=== PATIENT | male | born 1995 | race Caucasian/White ===

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

== ENCOUNTER 2017-04-15 13:14 | Emergency (ER) ==
[2017-04-15 13:19] VITALS: BP 127/89; TEMP 98.6; BMI 21.1
[2017-04-15 13:49] LABS: BASOPHILS # (AUTO) 0.1 K/uL (0-0.2); BASOPHILS % (AUTO) 0.5 % (0.0-3.0); EOSINOPHILS # (AUTO) 0.2 K/ul (0.0-0.7); EOSINOPHILS % (AUTO) 1.6 % (0.0-7.0); HEMATOCRIT 49.3 % (42.0-52.0); HEMOGLOBIN 17.1 g/dl (14.0-18.0); IMMATURE GRANULOCYTE % (AUTO) 0.4 % (0.0-5.0); LYMPHOCYTES # (AUTO) 3.4 K/uL (0.60-3.4); MEAN CORPUSCULAR HEMOGLOBIN 30.8 pg (27.0-31.0); MEAN CORPUSCULAR HGB CONC 34.7 (31.8-35.4); MEAN CORPUSCULAR VOLUME 88.7 fl (80.0-94.0); MONOCYTES # (AUTO) 0.6 K/uL (0.4-2.0); MONOCYTES % (AUTO) 5.8 (0-10); NEUTROPHILS # (AUTO) 6.4 K/ul (2.0-6.9); NEUTROPHILS % (AUTO) 59.7; PLATELET COUNT 235 10^3/uL (140-440); RED BLOOD COUNT 5.56 10^6/ul (4.70-6.10); WHITE BLOOD COUNT 10.65 K/ul (4.2-10.2)
[2017-04-15 14:54] LABS: BILIRUBIN,URINE Negative (NEGATIVE); KETONES,URINE Negative (NEGATIVE); LEUKOCYTE ESTERASE ,URINE Negative (NEGATIVE); NITRITE,URINE Negative (NEGATIVE); PROTEIN,URINE Negative (NEGATIVE); URINE, BLOOD Negative (NEGATIVE)
[2017-04-15 14:58] LABS: ADD URINE MICROSCOPIC NO
[2017-04-15 15:00] LABS: COCAIN SCREEN,URINE NEGATIVE (NEGATIVE)
[2017-04-15 15:15] LABS: ACETAMINOPHEN < 3 ug/ml (10-30); ALANINE AMINOTRANSFERASE 13 U/L (12-78); ALBUMIN 4.1 g/dL (3.4-5.0); ALBUMIN/GLOBULIN RATIO 1.24; ALKALINE PHOSPHATASE 102 U/L (50-136); ASPARTATE AMINO TRANSFERASE 15 U/L (5-30); BLOOD UREA NITROGEN 8 mg/dL (7-18); BUN/CREATININE RATIO 10.52; CALCIUM 9.6 mg/dL (8.2-10.2); CARBON DIOXIDE 24 mmol/L (21-32); CHLORIDE 106 mmol/L (98-107); CREATININE 0.76 mg/dL (0.60-1.10); GLUCOSE 106 mg/dL (70-100); SALICYLATE < 5.0 mg/dL (2.8-20.0); SODIUM 141 mmol/L (136-145); TOTAL PROTEIN 7.4 g/dL (6.4-8.2)
--- NOTE | 2017-04-15 15:33 | ED.PDOC ---
General ED Provider: Dr. ASHLEY JOSEPH Chief Complaint: Psychiatric Complaint Stated Complaint: suicidal ideation Time Seen by Physician: 13:19 (pt's father stated that pt expresses he is tired of it wants to end it all but pt denied it) Mode of Arrival: Walk-In Information Source: Patient Exam Limitations: No limitations Primary Care Provider: PATTY ARMSTRONG Nursing and Triage Documentation Reviewed and Agree: Yes (onarrival pt admitts to overdosing within past few weeks with ativan ) Psychological Complaint Exam - Psychiatric Complaint/Exam Patient Complains Of: Present: Suicidal thoughts, Suicidal gestures, Other ( overdosed with own meds a few weeks ago. ) Onset/Duration: few weeks Symptoms Are: Still present (per his father but pt denied fathers account of events) Timing: Intermittent Episodes Lasting: Hours Initial Severity: Severe Current Severity: Mild Character: Present: Anxious, Frustrated Aggravating: Reports: None Associated Signs And Symptoms: Reports: Paranoid behavior (per father none noted in ED). Denies: Hostile, Confused, Hallucinating Related History: Reports: Suicidal thoughts, Suicidal gestures, Prior attempts ( SUICIDE BY OVERDOSING), Recent stressors. Denies: Suicidal plan, Homicidal thoughts, Homicidal plan, Homicidal gestures Completed Suicide Risk Factors: Patient Accompanied By: Family, Police Patient In Custody Of Police: Yes Social Withdrawal Present: No Social Isolation Present: No Prior Suicide Attempt: Yes Injury From Prior Suicide Attempt: No Related Surgical History: Reports: None Patient Uncooperative For Exam: No Mood: Present: Agitated, Anxious Appearance: Present: Clean Thought Process: Present: Logical Insight: Present: Good Memory: Intact Judgement: Impaired Danger To Others: No Patient Medically Stable For: Psych evaluation Differential Diagnoses: Anxiety, Suicidal Ideation Review of Systems - Review Of Systems Constitutional: Reports: No symptoms Eyes: Reports: No symptoms Ears, Nose, Mouth, Throat: Reports: No symptoms Respiratory: Reports: No symptoms Cardiac: Reports: No symptoms GI: Reports: No symptoms : Reports: No symptoms Musculoskeletal: Reports: No symptoms Skin: Reports: No symptoms Neurological: Reports: Depressed Endocrine: Reports: No symptoms Hematologic/Lymphatic: Reports: No symptoms All Other Systems: Reviewed and Negative Past Medical History - Past Medical History Previously Healthy: Yes Endocrine: Reports: None Cardiovascular: Reports: None Respiratory: Reports: None Hematological: Reports: None Gastrointestinal: Reports: None Genitourinary: Reports: None Neuro/Psych: Reports: None, Other (not homocidal not suicidal father at bedside ) Musculoskeletal: Reports: None Cancer: Reports: None - Surgical History General Surgical History: Reports: None - Family History Family History: Reports: None - Social History Smoking Status: Current every day smoker, Light tobacco smoker Hx Substance Use: No Alcohol Screening: None Physical Exam - Physical Exam Appearance: Well-appearing, No pain distress, Well-nourished Eyes: SARA, EOMI, Conjunctiva clear ENT: Ears normal, Nose normal, Oropharynx normal Respiratory: Airway patent, Breath sounds clear, Breath sounds equal, Respirations nonlabored Cardiovascular: RRR, Pulses normal, No rub, No murmur GI/: Soft, Nontender, No masses, Bowel sounds normal, No Organomegaly Musculoskeletal: Normal strength, ROM intact, No edema, No calf tenderness Skin: Warm, Dry, Normal color Neurological: Sensation intact, Motor intact, Reflexes intact, Cranial nerves intact, Alert, Oriented Psychiatric: Affect appropriate, Mood appropriate Re-Evaluation - Re-Evaluation Time of Re-Evaluation: 15:00 Status: Improved Vital Signs Stable: Yes Pain Level: 0 Appearance: NAD Lungs: Clear Skin: Warm and Dry Neuro: Alert and Oriented X3 CV: RRR - Re-Evaluation Time of Re-Evaluation: 18:26 Status: Improved Vital Signs Stable: Yes Pain Level: 0 Appearance: NAD Skin: Warm and Dry Neuro: Alert and Oriented X3 CV: RRR (PT COMFORTABLE IN NO PAIN OR DISTRESS) Physician Notification - Case Discussed Physician Notified: [email or web address] Time of Notification: 19:00 Critical Care Note - Critical Care Note Total Time (mins): 0 Course - Course Hematology/Chemistry: 04/15/17 13:26 04/15/17 13:45 Orders, Labs, Meds: Lab Review 04/15/17 04/15/17 04/15/17 13:26 13:45 14:39 WBC 10.65 H RBC 5.56 Hgb 17.1 Hct 49.3 MCV 88.7 MCH 30.8 MCHC 34.7 RDW Coeff of Bob 12.6 Plt Count 235 Immature Gran % (Auto) 0.4 Neut % (Auto) 59.7 Lymph % (Auto) 32.0 [place] % (Auto) 5.8 Eos % (Auto) 1.6 Baso % (Auto) 0.5 Immature Gran # (Auto) 0.0 Neut # 6.4 Lymph # 3.4 [place] # 0.6 Eos # 0.2 Baso # 0.1 Sodium 141 Potassium 4.0 Chloride 106 Carbon Dioxide 24 Anion Gap 15.0 BUN 8 Creatinine 0.76 Estimated GFR (MDRD) 132.00 BUN/Creatinine Ratio 10.52 Glucose 106 H Calcium 9.6 Total Bilirubin 0.30 L AST 15 ALT 13 Alkaline Phosphatase 102 Total Protein 7.4 Albumin 4.1 Globulin 3.3 Albumin/Globulin Ratio 1.24 Urine Color Yellow Urine Clarity Clear Urine pH 7.0 Ur Specific [place] 1.020 Urine Protein Negative Urine Glucose (UA) Negative Urine Ketones Negative Urine Blood Negative Urine Nitrite Negative Urine Bilirubin Negative Urine Urobilinogen 0.2 Ur Leukocyte Esterase Negative Salicylate Level mg/dL < 5.0 Urine Opiates Screen Ur Oxycodone Screen Urine Methadone Screen Ur Propoxyphene Screen Acetaminophen < 3 L Ur Barbiturates Screen U Tricyclic Antidepress Ur Phencyclidine Scrn Ur Amphetamine Screen U Methamphetamines Scrn U Benzodiazepines Scrn Urine Cocaine Screen U Cannabinoids Screen Plasma/Serum Alcohol < 10.0 04/15/17 14:40 WBC RBC Hgb Hct MCV MCH MCHC RDW Coeff of Bob Plt Count Immature Gran % (Auto) Neut % (Auto) Lymph % (Auto) [place] % (Auto) Eos % (Auto) Baso % (Auto) Immature Gran # (Auto) Neut # Lymph # [place] # Eos # Baso # Sodium Potassium Chloride Carbon Dioxide Anion Gap BUN Creatinine Estimated GFR (MDRD) BUN/Creatinine Ratio Glucose Calcium Total Bilirubin AST ALT Alkaline Phosphatase Total Protein Albumin Globulin Albumin/Globulin Ratio Urine Color Urine Clarity Urine pH Ur Specific [place] Urine Protein Urine Glucose (UA) Urine Ketones Urine Blood Urine Nitrite Urine Bilirubin Urine Urobilinogen Ur Leukocyte Esterase Salicylate Level mg/dL Urine Opiates Screen Negative Ur Oxycodone Screen Negative Urine Methadone Screen Negative Ur Propoxyphene Screen Negative Acetaminophen Ur Barbiturates Screen Negative U Tricyclic Antidepress Negative Ur Phencyclidine Scrn Negative Ur Amphetamine Screen Negative U Methamphetamines Scrn Negative U Benzodiazepines Scrn Positive Urine Cocaine Screen Negative U Cannabinoids Screen Negative Plasma/Serum Alcohol Orders Category Date Time Status EKG-(ED ONLY) Stat CARDIO 04/15/17 13:26 Completed ACETAMINOPHEN Stat LAB 04/15/17 13:45 Completed BLOOD ALCOHOL Stat LAB 04/15/17 13:45 Completed CBC W/ AUTO DIFF Stat LAB 04/15/17 13:26 Completed COMPREHENSIVE METABOLIC PANEL Stat LAB 04/15/17 13:45 Completed DRUG SCREEN, URINE, RAPID Stat LAB 04/15/17 14:40 Completed SALICYLATE Stat LAB 04/15/17 13:45 Completed URINALYSIS C & S IF INDICATED Stat LAB 04/15/17 14:39 Completed Vital Signs: Temp Pulse Resp BP Pulse Ox 04/15/17 13:15 98.6 F 110 H 20 127/89 97 Departure - Departure Discharge Problem: Suicidal ideation Instructions: Suicide Prevention for Adults (ED) Condition: Good Pt referred to PMD for follow-up: Yes Additional Instructions: Please call your Family Physician as soon as possible to schedule a follow-up appointment.Please call your Family Physician as soon as possible to schedule a follow-up appointment.Please call your Family Physician as soon as possible to schedule a follow-up appointment. Allergies/Adverse Reactions: Allergies No Known Allergies Allergy (Verified 04/15/17 13:19) Home Medications: Ambulatory Orders Lorazepam [Ativan] 1 mg PO TID 04/15/17
== END 2017-04-15 21:00 | disposition home or self-care (01) ==
LOC: ED 13:14
DX: R45.851 Suicidal ideations (principal); F17.210 Nicotine dependence, cigarettes, uncomplicated
CPT/HCPCS: 36415; 80053; 80306; 80307; 81001; 85025; 93005; 93010; 99283

== ENCOUNTER 2017-07-05 15:02 | Emergency (ER) ==
[2017-07-05 15:26] VITALS: BMI 22.1
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
[2017-07-06 00:41] VITALS: BP 94/59; TEMP 97.2
== END 2017-07-06 04:10 | disposition short-term general hospital (02) ==
LOC: ED 15:02
DX: F23 Brief psychotic disorder (principal); Z72.0 Tobacco use
CPT/HCPCS: 36415; 80053; 80306; 80307; 81001; 85025; 93005; 93010; 99285

== ENCOUNTER 2017-08-11 11:32 | Outpatient (CLI) ==
--- NOTE | 2017-08-11 13:49 | DI ---
EXAM: Chest two view, frontal and lateral views. HISTORY: Cough. COMPARISON: 01/19/2016. FINDINGS: The heart size is normal. There is no pulmonary vascular congestion. The lungs are clear . No pleural effusion or pneumothorax is seen. No acute osseous abnormality identified. Since the prior study, there has been no significant interval change. IMPRESSION: No acute cardiopulmonary process.
== END 2017-08-11 11:33 | disposition home or self-care (01) ==
LOC: RAD 11:32
PROVIDERS: ATTEND Family Medicine
DX: R05 Cough (principal)

== ENCOUNTER 2017-08-14 10:46 | Emergency (ER) ==
[2017-08-14 11:03] VITALS: BP 126/69; TEMP 99.7; BMI 25.1
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
== END 2017-08-14 16:06 | disposition home or self-care (01) ==
LOC: ED 10:46
DX: R44.0 Auditory hallucinations (principal); F91.9 Conduct disorder, unspecified; F20.9 Schizophrenia, unspecified; F17.210 Nicotine dependence, cigarettes, uncomplicated
CPT/HCPCS: 99283

== ENCOUNTER 2018-08-07 09:39 | Emergency (ER) ==
[2018-08-07 09:44] VITALS: BP 113/70; TEMP 99.2; BMI 26.6
--- NOTE | 2018-08-07 10:47 | CT ---
EXAM: CT of the abdomen pelvis without contrast History: Left flank pain. Comparison: CT abdomen pelvis 05/30/2016 Technique: Multiplanar CT images through the abdomen pelvis were obtained without the administration of IV contrast Findings: Lung bases are clear. No acute osseous abnormalities. No gallstones identified by CT. No focal liver or splenic lesions. No peripancreatic inflammation. Adrenal glands are unremarkable. No renal stones and no hydronephrosis. The appendix is normal. N o ureteral calculi. No bowel obstruction. No bladder wall thickening. No free air and no ascites. There is focal inflammation seen adjacent to the descending colon. No abscess. Prostate is not enl arged. Impression: Focal inflammation seen adjacent to the descending colon could be due to diverticulitis or epiploic appendagitis. There is no free air and no abscess.
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
== END 2018-08-07 11:00 | disposition home or self-care (01) ==
LOC: ED 09:39
DX: M54.9 Dorsalgia, unspecified (principal); R10.32 Left lower quadrant pain; R39.9 Unspecified symptoms and signs involving the genitourinary system; R30.0 Dysuria; Z72.0 Tobacco use
CPT/HCPCS: 36415; 74176; 80053; 81001; 85025; 99283